=== PATIENT | male | born 1970 | race Caucasian/White ===

== ENCOUNTER 2025-01-22 09:43 | Day surgery (SDC) | payer OTHER ==
[~2025-01-22 09:43] MED LIST: Ketorolac 30 MG/ML SDV ONE; Lactated Ringers 1,000 ML ONE; Midazolam 1 MG/ML 2 ML SDV ONE; Ondansetron 4 MG/2 ML SDV ONE; Sodium Chloride 0.9% 10 ML Syringe FLUSH PRN; Sodium Chloride 0.9% 10 ML Syringe FLUSH SCH; propofoL 500 MG/50 ML 50 ML ONE
[2025-01-22] MEDS: Lactated Ringers 1,000 ML IV SCH (10:05)
[2025-01-22] MEDS: oxyCODONE ER 10 MG TAB.ER PO SCH (10:22)
[2025-01-22 10:34] LABS: INR 1.0
[2025-01-22 10:35] LABS: PTT,PARTIAL THROMBOPLSTIN TIME 25.2 SECONDS (21.7-31.4)
[2025-01-22] MEDS ORDERED: fentaNYL 100 MCG/2 ML SDV ONE (11:35)
[2025-01-22] MEDS ORDERED: Ropivacaine 0.5% 5 MG/ML 30 ML SDV ONE (11:36)
[2025-01-22] MEDS ORDERED: Lactated Ringers 1,000 ML ONE (12:47)
[2025-01-22] MEDS ORDERED: Propofol 200 MG/20 ML SDV ONE ×2 (13:27→13:48)
[2025-01-22] MEDS: Morphine 8 MG, EPINEPHrine 0.3 MG, Cefuroxime 750 MG, Ketorolac 30 MG, Sodium Chloride ... PRN (13:37)
[2025-01-22] MEDS ORDERED: Ondansetron 4 MG/2 ML SDV IVPUSH PRN (14:10)
[2025-01-22] MEDS: fentaNYL 100 MCG/2 ML SDV IVPUSH PRN (14:50)
== END 2025-01-22 18:41 | disposition home or self-care (01) ==
LOC: JD.SDS 09:43
PROVIDERS: ATTEND Orthopaedic Surgery
DX: M17.12 Unilateral primary osteoarthritis, left knee (principal); I10 Essential (primary) hypertension; E78.5 Hyperlipidemia, unspecified; Z79.899 Other long term (current) drug therapy
CPT/HCPCS: 0055T; 27447; 36415; 64447; 73560; 85610; 85730; 97110; 97116; 97161; A9270; C1713; C1776; J0169; J0690; J0697; J1885; J2250; J2272; J2405; J2704; J2795; J3010; J3373; J7120; 01402; J1171